=== PATIENT | female | born 1955 ===

== ENCOUNTER 2018-06-14 16:18 | Inpatient (IN) | payer OTHER ==
[~2018-06-14] VITALS: Ht 157.5 cm; Wt 45.4 kg
--- NOTE | 2018-06-14 17:02 | NUR ---
PTE REFIERE DIFICULTAD PARA RESPIRAR Y PIERNA DERECHA HINCHADA SE MINISTERIO S/V Y SE UBICA EN AREA DE ASMA UNIT
[2018-06-14] MEDS ORDERED: DYMISTA NASAL S23 GM (17:06)
[2018-06-14] MEDS ORDERED: SYNTHROID75 MCG (17:06)
[2018-06-14] MEDS ORDERED: ZOLPIDEM TARTRAT5 MG (17:07)
[2018-06-14] MEDS ORDERED: HIZENTRA4 GM/20 ML (17:07)
[2018-06-14] MEDS ORDERED: PROAIR RESPICL90 MCG (17:08)
--- NOTE | 2018-06-14 18:09 | NUR ---
EVALUA PTE. SE ORIENTA A PTE SOBRE TX MEDICO. PTE REFIERE COMPRENDER. SE REALIZAN MUESTRAS DE LABORATORIO BAJO MEDIDAS ASEPTICAS. SE ADMINISTRAN MEDICAMENTOS MOIRA ORDEN MEDICA. SE NOTIFICAN ABG Y TERAPIAS RESPIRATORIAS. SE NOTIFICA ANGEL X.
== END 2018-06-20 17:37 | disposition home or self-care (01) | DRG 202 ==
LOC: ER 16:18 → MEDJ 21:42 → MEDI 21:42 → MEDJ 06-16 14:50
PROVIDERS: ADMIT Internal Medicine
PROC: 4A033R1 Measurement of Arterial Saturation, Peripheral, Percutaneous Approach (ICD-10-PCS; principal; 2018-06-14)
PROC: 3E0F7GC Introduction of Other Therapeutic Substance into Respiratory Tract, Via Natural or Artificial Opening (ICD-10-PCS; 2018-06-14)
PROC: B54DZZZ Ultrasonography of Bilateral Lower Extremity Veins (ICD-10-PCS; 2018-06-15)
PROC: BB24ZZZ Computerized Tomography (CT Scan) of Bilateral Lungs (ICD-10-PCS; 2018-06-15)
PROC: 8E0ZXY6 Isolation (ICD-10-PCS; 2018-06-18)
DX: J45.901 Unspecified asthma with (acute) exacerbation (principal); J16.8 Pneumonia due to other specified infectious organisms; D83.8 Other common variable immunodeficiencies; B44.1 Other pulmonary aspergillosis; J45.909 Unspecified asthma, uncomplicated; E03.8 Other specified hypothyroidism